=== PATIENT | female | born 1950 | race Caucasian/White ===

== ENCOUNTER → 2017-01-17 12:21 | Outpatient (CLI) | payer MEDICARE, BC ==
[2016-03-30 16:25] VITALS: BMI 20.3
[~2017-01-17 12:21] MED LIST: BAYER CHEWABLE81 MG PO; CALCIUM CITRATE1 TAB PO; CLARITIN 10 MG10 MG PO; CO Q-10100 MG PO; ESTROVAN OR; FISH OIL 1,0001 CA1 PO; MAGNESIUM GLUC500 M1 PO; MOBIC7.5 MG PO; MULTI-DAY VITAM1 TAB PO; NORCO 10/325 TA1 TA1 PO; OSTEO BI-FLEX1 EAC1 PO; PRILOSEC20 MG PO; PROBIOTIC PO; RESTORIL15 MG PO; TUMERIC OR; TYLENOL W/CODEI1 TAB PO; ULTRAM50 MG PO; VITAMIN D5000 UNIT PO; ZANTAC300 MG PO
== END | disposition home or self-care (01) ==
LOC: D.LABREF 12:21
DX: A04.7 Enterocolitis due to Clostridium difficile (principal)

== ENCOUNTER 2018-04-02 08:00 | Outpatient (CLI) | payer MEDICARE, BC ==
[2016-03-30 16:25] VITALS: BMI 20.3
== END 2018-04-02 09:00 | disposition home or self-care (01) ==
LOC: D.MAMMO 08:00
DX: Z12.31 Encounter for screening mammogram for malignant neoplasm of breast (principal)

== ENCOUNTER → 2018-04-06 07:31 | Outpatient (CLI) | payer MEDICARE, BC ==
[2016-03-30 16:25] VITALS: BMI 20.3
== END | disposition home or self-care (01) ==
LOC: D.CT 07:31
DX: R91.8 Other nonspecific abnormal finding of lung field (principal)

== ENCOUNTER → 2018-12-12 10:00 | Outpatient (CLI) | payer MEDICARE, BC ==
[2016-03-30 16:25] VITALS: BMI 20.3
== END | disposition home or self-care (01) ==
LOC: D.CT 10:00
PROVIDERS: ATTEND Family Medicine
DX: R91.8 Other nonspecific abnormal finding of lung field (principal)

== ENCOUNTER 2019-08-06 09:30 | Day surgery (SDC) | payer MEDICARE, BC ==
[2019-08-05 08:58] LABS: HEMATOCRIT 41.1 % (36.0-48.0); HEMOGLOBIN 13.2 g/dL (12-16); MCH 30.3 pg (26.0-34.0); MCHC 32.1 g/dL (31.0-37.0); MCV 94.3 fL (80.0-100.0); MEAN PLATELET VOLUME 9.5 fL (7.4-10.4); RBC 4.36 10x6/uL (4.00-5.40); RDW 12.7 % (11.5-14.5); WBC 5.1 10x3/uL (4.8-10.8)
[~2019-08-06] VITALS: Ht 167.6 cm; Wt 57.6 kg
[2019-08-06 09:48] VITALS: BP 135/78; BP 143/73; Ht 167.6 cm; Wt 57.6 kg
[2019-08-06] MEDS ORDERED: HYDROCODON-ACE1 EA10 PO (13:44)
--- NOTE | 2019-08-06 16:01 | NUR ---
1530 IV REMOVED AND PRESSURE HELD
--- NOTE | 2019-08-08 11:57 | OP ---
PATIENT NAME: THAO WEI MEDICAL RECORD: [id number] :46 LOCATION:D.OPS ADMISSION DATE: SURGEON: AROLDO BARNES MD DATE OF OPERATION: 08/06/2019 PREOPERATIVE DIAGNOSES: 1. Right inguinal mass. 2. Peptic ulcer disease. 3. Osteopenia. POSTOPERATIVE DIAGNOSES: 1. Right femoral hernia. 2. Peptic ulcer disease. 3. Osteopenia. PROCEDURE: Right inguinal hernia repair with medium PHS mesh. SURGEON: Aroldo Barnes MD REPORT OF PROCEDURE: The patient's right groin was prepped and draped in sterile fashion. An oblique incision was made overlying the fatty soft tissue lesion. Electrocautery was used to dissect through the subcutaneous tissues, as we came around the lesion, we could follow this down to the underlying tissues and can see that this fatty mass was extending through the fascia consistent with a femoral hernia. We were able to reduce this through the femoral opening. We can feel the vessels on either side and there was a collection of lymphatics medially. I went ahead and undermined the tissue and opened up the external oblique fascia to enter the inguinal space. Once we did, we high ligated the round ligament with 0 Vicryl and then opened up the inguinal floor using electrocautery. The ilioinguinal nerve was found and high ligated. We opened up the preperitoneal space of Retzius, and I was able to dissect down around the vascular tissues until we could clearly visualize the patient's Graham's ligament where I inserted the medium PHS mesh and made sure the subfascial piece of mesh was resting in an open manner over top of the Graham's ligament and the femoral hernia. We then sutured this mesh down using multiple interrupted 0 Vicryls. We then closed up the femoral defect with interrupted 0 Vicryls incorporating a bite of the top surface of the mesh. We then irrigated out the wound with normal saline. The external oblique fascia was closed with running 2-0 Vicryl, Kirsty's was closed with interrupted 3-0 Vicryl and the skin was closed with running subcutaneous 5-0 Monocryl. A total of 10 mL of 0.25% Marcaine with epinephrine was infused into the surrounding tissues and the wound was dressed appropriately. COMPLICATIONS: None. CONDITION: Stable. ANESTHESIA: General endotracheal and local. BLOOD LOSS: Minimal. TRANSINT:[id number] Voice Confirmation ID: [id number] DOCUMENT ID: [id number] OPERATIVE REPORT [id number] THAO WEI CHRISTIAN MD at 1157 CC: [id number] DICTATION DATE: 08/06/19 1349 STATE APPELLATE CLERK: 08/06/19 2320 [facility] 08/06/19 [place] [id number] [place] [id number]
== END 2019-08-06 15:40 | disposition home or self-care (01) ==
LOC: D.OPS 09:30 → D.PAN 11:35 → D.OPS 11:35
PROVIDERS: Anesthesiology; ATTEND Surgery
DX: K27.9 Peptic ulcer, site unspecified, unspecified as acute or chronic, without hemorrhage or perforation (principal); M85.80 Other specified disorders of bone density and structure, unspecified site; K40.90 Unilateral inguinal hernia, without obstruction or gangrene, not specified as recurrent

== ENCOUNTER 2019-09-28 17:49 | Emergency (ER) | payer MEDICARE, BC ==
[~2019-09-28] VITALS: Ht 167.6 cm; Wt 56.8 kg
[~2019-09-28 17:49] MED LIST changes: +HYDROCODON-ACE1 EA10 PO
[2019-09-28 17:55] VITALS: BP 150/94; Ht 167.6 cm; Wt 56.8 kg
[2019-09-28] MEDS ORDERED: HYDROCODON-ACE1 EAC7 PO (20:17)
== END 2019-09-28 20:47 | disposition home or self-care (01) ==
LOC: D.ER 17:49
DX: M25.561 Pain in right knee (principal); M79.641 Pain in right hand; W19.XXXA Unspecified fall, initial encounter; Y92.9 Unspecified place or not applicable; Y93.K1 Activity, walking an animal; K21.9 Gastro-esophageal reflux disease without esophagitis

== ENCOUNTER → 2019-09-30 12:34 | Outpatient (CLI) | payer MEDICARE, BC ==
[2019-09-28 17:55] VITALS: BMI 20.2
== END | disposition home or self-care (01) ==
LOC: D.MRI 12:34
PROVIDERS: ATTEND Clinical Nurse Specialist Family Health
DX: M25.561 Pain in right knee (principal)

== ENCOUNTER → 2020-05-21 08:46 | Outpatient (CLI) | payer MEDICARE, BC ==
[2019-09-28 17:55] VITALS: BMI 20.2
[~2020-05-21 08:46] MED LIST changes: +HYDROCODON-ACE1 EAC7 PO
== END | disposition home or self-care (01) ==
LOC: D.LAB 08:00 → D.CT 09:00
PROVIDERS: ATTEND Internal Medicine Gastroenterology
DX: R10.31 Right lower quadrant pain (principal)

== ENCOUNTER 2020-12-04 14:45 | Outpatient (CLI) | payer MEDICARE, BC ==
[2019-09-28 17:55] VITALS: BMI 20.2
== END 2020-12-04 23:59 | disposition home or self-care (01) ==
LOC: D.MAMMO 14:45
PROVIDERS: ATTEND Family Medicine
DX: Z12.31 Encounter for screening mammogram for malignant neoplasm of breast (principal)